=== PATIENT | male | born 1970 | race Caucasian/White ===

== ENCOUNTER → 2016-10-03 | Outpatient (CLI) | payer BC ==
[2016-10-03 11:56] LABS: CH 30.9; CHCM 34.1; HCT 49.9 % (39.0-53.0); HDW 2.65; HGB 16.7 gm/dL (13.0-17.5); MCH 30.4 pg (25.0-35.0); MCHC 33.4 g/dL (31.0-37.0); MCV 91.2 fL (80.0-100.0); Mean Platelet Volume 7.1; RBC 5.47 m/uL (4.30-5.90); RDW 13.2 % (11.5-15.5)
[2016-10-03 12:39] LABS: Potassium 4.9 mmol/L (3.5-5.1)
== END | disposition home or self-care (01) ==
LOC: LABPAT 11:27
PROVIDERS: ATTEND Surgery
DX: Z01.812 Encounter for preprocedural laboratory examination (principal)
CPT/HCPCS: 80051; 85027

== ENCOUNTER 2016-10-09 10:17 | Day surgery (SDC) | payer BC ==
[2016-10-02 16:01] VITALS: BMI 29.1
[~2016-10-09 10:17] MED LIST: LACTATED RINGERS 1,000 ML IV SCH
[2016-10-09] MEDS ORDERED: LIDOCAINE 1% 20 ML VIAL (10MG/ML) FOR IV START INTRADERMA ONE (11:03)
[2016-10-09 11:12] VITALS: RESP 18; TEMP 98.1
[2016-10-09] MEDS ORDERED: PROPOFOL 10 MG/ML 20 ML VIAL IV ONE (13:28)
--- NOTE | 2016-10-09 13:33 | P.GSHP ---
History of Present Illness H&P Date: 10/09/16 Chief Complaint: Intrabdominal abscess 46 yr old male presents regarding intrabdominal abscess S/P CT guided drainage . Cultures grew Kliebsiella. He reports no fever, no abdominal pain, regular BM. Has finished po antibiotics. Last CBC within normal limits. Repeat CT scan showed decrease in size of the abscess - Review of Systems Comment: Constitutional: No fever, chills or rigors. No weight loss or loss of appetite. HEENT: No difficulty with hearing, vision and swallowing. Lymphatic: No axillary , inguinal and cervical swellings. Endocrine: No thyroid disorders. Denies history of diabetes. Respiratory: No chest pain, shortness of breath, and cough. No hemoptysis. Cardiovascular: No palpitations, irregular HR Gastrointestinal: Denies heartburn. No change in bowel habits. No nausea or vomiting. Genitourinary: No increase in urinary frequency or urgency. No hematuria. Musculoskeletal: No back pain, joint stiffness or pain. Neurologic: No history of seizure disorder and headaches. Psychiatric: Denies depression or anxiety . No suicidal ideation. Hematologic: Denies any abnormal mucosal bleeding or easy bruising Past Medical History Additional Past Medical History / Comment(s): abscess lower rt quad of abd-tx with antibiotics for last 5-6 mos. History of Any Multi-Drug Resistant Organisms: None Reported Past Surgical History: No Surgical Hx Reported Past Anesthesia/Blood Transfusion Reactions: Motion Sickness Additional Past Anesthesia/Blood Transfusion Reaction / Comment(s): Never has had general anesthesia or blood transfusion. Past Psychological History: No Psychological Hx Reported Smoking Status: Never smoker Past Alcohol Use History: None Reported Past Drug Use History: None Reported - Past Family History Father Family Medical History: No Reported History Mother Family Medical History: No Reported History Medications and Allergies Home Medications Medication Instructions Recorded Confirmed Type No Known Home Medications [No 10/02/16 10/09/16 History Known Home Medications] Allergies Allergy/AdvReac Type Severity Reaction Status Date / Time No Known Allergies Allergy Verified 10/09/16 10:48 Surgical - Exam Vital Signs Temp Pulse Resp BP 98.1 F 68 18 148/80 10/09/16 11:09 10/09/16 11:09 10/09/16 11:09 10/09/16 11:09 Constitutional General Appearance: healthy-appearing, well-nourished, well-developed Level of Distress: NAD Ambulation: ambulating normally Psychiatric Insight: good judgement Mental Status: active and alert, normal mood, normal affect Orientation: to time, to place, to person Memory: recent memory normal, remote memory normal Head Head: normocephalic, atraumatic Eyes Lids and Conjunctivae: non-injected, no discharge, no pallor EOM: EOMI Sclerae: non-icteric ENMT Oropharynx: moist mucous membranes Musculoskeletal: Motor Strength and Tone: normal, normal tone Joints, Bones, and Muscles: normal movement of all extremities Extremities: no cyanosis, no edema Neurologic Gait and Station: normal gait, normal station Cranial Nerves: grossly intact Skin Inspection and palpation: no rash, no lesions Assessment and Plan (1) Intra-abdominal abscess Status: Acute Plan: 1. Review CT scan abd/pelvis 2. Colonoscopy 3. Unclear about the source of intrabdominal abscess. Terminal ileitis/chron's disease with abscess vs. perforated appendicitis with abscess 4. Ileocecetomy/right hemicolectomy in am 10/10/16
[2016-10-09 14:36] VITALS: BP 125/80; PULSE 69
--- NOTE | 2016-10-09 15:18 | P.OP ---
Date of Procedure: 10/09/16 Preoperative Diagnosis: Intra-abdominal abscess Postoperative Diagnosis: Same Procedure(s) Performed: Colonoscopy with biopsy Implants: NA Anesthesia: MAC Surgeon: Daisha Gómez Pathology: other Condition: stable Disposition: PACU Indications for Procedure: 46 years old male presented with intra-abdominal abscess and terminal ileum thickening. Status post drainage and oral antibiotics. Repeat computed tomography scan shows decreasing size of the abscess. However patient has abdominal discomfort. No prior history of colonoscopy. No family history of Crohn's disease or ulcerative colitis. Informed consent obtained and patient elected to undergo colonoscopy with possible biopsy. The risks, benefits and potential complications were explained and patient elected to undergo the procedure Operative Findings: Multiple less than 5 mm polyp in the rectum and sigmoid colon which appeared hyperplastic in nature. No evidence of colitis. Description of Procedure: The patient was brought to the endoscopy suite and placed in lateral decubitus position. IV sedation was given as per anesthesia team. Patient was on continuous vitals and pulse oximetry monitoring throughout the procedure. A timeout was performed to verify correct patient and correct procedure. Perianal examination did not show any external hemorrhoids. Digital rectal examination was performed. No masses or gross blood. A well-lubricated Olympus colonoscope was passed per rectally and was gradually advanced beyond the sigmoid colon, splenic flexure, transverse colon, hepatic flexure and cecum. The ileocecal valve was visualized . The colonoscope was gradually withdrawn inspecting all the mucosal surfaces. Bowel prep was good. No masses, AV malformations noted. Sigmoid diverticulosis noted without any evidence of acute diverticulitis. Multiple hyperplastic polyps noted within the rectum and distal sigmoid colon which were biopsied using cold biopsy forceps and they were less than 5 mm in size The scope was gradually withdrawn and retroflexed in the rectum . Grade 1 internal hemorrhoids seen. Total withdrawal time was greater than 6 minutes . Patient tolerated the procedure well and was taken to post anesthesia care unit in stable condition. Recommend repeat colonoscopy in 5 years . Pending pathology reports.
== END 2016-10-09 14:45 | disposition home or self-care (01) ==
LOC: ORWHC2ENDO 10:17
PROVIDERS: ATTEND Surgery
DX: K63.5 Polyp of colon (principal); K62.1 Rectal polyp; K64.0 First degree hemorrhoids; K65.1 Peritoneal abscess
CPT/HCPCS: 88305; 45380; J2704; 43239; 99153

== ENCOUNTER 2016-10-10 08:43 | Inpatient (IN) | payer BC ==
[2016-10-02 15:03] VITALS: BMI 29.1
[~2016-10-10 08:43] MED LIST changes: +DEXAMETHASONE SOD PHOSPHATE 10 MG/ML 1 ML VIAL IV ONE; +HYDROmorphone 1 MG/ML 1 ML SYRINGE IVP PRN; +MIDAZOLAM 2 MG/2 ML VIAL IV PRN; +ONDANSETRON 4 MG/2 ML VIAL IVP ONE; +SCOPOLAMINE 1.5MG/72HR PATCH TRANSDERM ONE; +ceFAZolin 2 GM in SODIUM CHLORIDE 0.9% 100 ML IVPB ONE; +metroNIDAZOLE-NS PMX 500 MG in SALINE 1 100ML.BAG IVPB ONE
[2016-10-10] MEDS ORDERED: HEPARIN SODIUM,PORCINE 5,000 UNIT/ML 1 ML VIAL SQ ONE (09:00)
[2016-10-10] MEDS ORDERED: MELOXICAM 7.5 MG TAB PO ONE (09:00)
[2016-10-10] MEDS ORDERED: Antibiotics per Pharmacy 1 EACH MISC MISCELLANE PRN (09:00)
[2016-10-10] MEDS ORDERED: ALVIMOPAN 12 MG CAPSULE PO ONE (09:00)
[2016-10-10] MEDS ORDERED: LIDOCAINE 1% 20 ML VIAL (10MG/ML) FOR IV START INTRADERMA ONE (09:42)
[2016-10-10] MEDS ORDERED: fentaNYL (PF) 50 MCG/ML 2 ML AMP IV ONE ×2 (09:53→10:43)
[2016-10-10] MEDS ORDERED: diphenhydrAMINE 50 MG/ML 1 ML VIAL IVP PRN (10:05)
[2016-10-10] MEDS ORDERED: NALBUPHINE 10 MG/ML AMPUL IV PRN (10:05)
[2016-10-10] MEDS ORDERED: ONDANSETRON 4 MG/2 ML VIAL IVP PRN ×2 (10:05→10:59)
[2016-10-10] MEDS ORDERED: NALOXONE 0.4 MG/ML 1 ML VIAL IV PRN (10:05)
[2016-10-10] MEDS ORDERED: METOCLOPRAMIDE 5 MG/ML 2 ML VIAL IVP PRN (10:59)
[2016-10-10] MEDS ORDERED: BUPIVACAIN-EPI 0.25%-1:200,000 30 ML VIAL SQ ONE (11:22)
[2016-10-10] MEDS ORDERED: LACTATED RINGERS 1,000 ML IV ONE ×2 (11:23→12:35)
[2016-10-10] MEDS: BUPIVACAINE (PF) 0.5% 50 ML, HYDROmorphone 5 MG in SODIUM CHLORIDE 0.9% 198 ML EPIDURAL PRN (14:07)
[2016-10-10] MEDS: D5-0.45% NACL WITH KCL 20MEQ/L 1,000 ML IV SCH ×2 (16:00→23:45)
[2016-10-10] MEDS: HEPARIN SODIUM,PORCINE 5,000 UNIT/ML 1 ML VIAL SQ SCH ×2 (16:01→23:50)
[2016-10-10 17:12] LABS: Glucose,Whole Blood 146 mg/dL (75-99)
[2016-10-10] MEDS: FAMOTIDINE 20 MG/2 ML VIAL IV SCH (21:22)
[2016-10-10] MEDS: ALVIMOPAN 12 MG CAPSULE PO SCH (21:22)
[2016-10-11] MEDS: D5-0.45% NACL WITH KCL 20MEQ/L 1,000 ML IV SCH ×2 (04:09→07:36)
[2016-10-11 06:54] LABS: Basophils % (A) 0 %; CH 30.9; CHCM 33.7; Eosinophils % (A) 0 %; HCT 43.8 % (39.0-53.0); HDW 2.66; HGB 14.6 gm/dL (13.0-17.5); Luc # (Auto) 0.13; Luc % (Auto) 1; Lymphocytes # (A) 0.8 k/uL (1.0-4.8); Lymphocytes % (A) 8 %; MCH 30.6 pg (25.0-35.0); MCHC 33.2 g/dL (31.0-37.0); MCV 92.1 fL (80.0-100.0); Mean Platelet Volume 7.3; Monocytes # (A) 0.6 k/uL (0-1.0); Monocytes % (A) 6 %; Neutrophils # (A) 8.6 k/uL (1.3-7.7); Neutrophils % (A) 85 %; RBC 4.76 m/uL (4.30-5.90); RDW 13.1 % (11.5-15.5); WBC 10.1 k/uL (3.8-10.6); WBC (Perox) 11.37
[2016-10-11 07:37] LABS: ALT 45 U/L (21-72); AST 22 U/L (17-59); Alkaline Phosphatase 64 U/L (38-126); Anion Gap 9 mmol/L; Blood Urea Nitrogen 7 mg/dL (9-20); Calcium 9.1 mg/dL (8.4-10.2); Carbon Dioxide 26 mmol/L (22-30); Chloride 104 mmol/L (98-107); Glucose 129 mg/dL (74-99); Non-African American GFR(MDRD) >60 (>60 ml/min/1.73 sqM); Sodium 139 mmol/L (137-145); Total Bilirubin 0.6 mg/dL (0.2-1.3); Total Protein 6.3 g/dL (6.3-8.2)
[2016-10-11] MEDS: FAMOTIDINE 20 MG/2 ML VIAL IV SCH ×2 (08:39→21:22)
[2016-10-11] MEDS: HEPARIN SODIUM,PORCINE 5,000 UNIT/ML 1 ML VIAL SQ SCH ×3 (08:39→23:34)
[2016-10-11] MEDS: ALVIMOPAN 12 MG CAPSULE PO SCH ×2 (08:39→21:22)
--- NOTE | 2016-10-11 09:09 | P.PN ---
Progress Note - Text This is a 46-year-old gentleman postoperative day #1 status post ileocecostomy with a thoracic epidural catheter placement for postoperative pain control. The patient is lying in his bed alert oriented 3 in no apparent distress. The patient has not tried to ambulate yet however he denies any incisional pain at this point. He also denies any weakness in the lower extremities or any paresthesia. The patient will try to ambulate today with assistance.
--- NOTE | 2016-10-11 10:04 | P.PN ---
Subjective Principal diagnosis: Intra-abdominal abscess Status post laparoscopic drainage of intra-abdominal abscess and ileocectomy postop day #1. Patient has epidural. Pain is well controlled. Good urine output. No fever, chills or rigors. No bowel function yet. No acute overnight events Objective - Vital Signs Vital signs: Vital Signs Temp 97.5 F L 10/11/16 07:00 Pulse 84 10/11/16 07:00 Resp 16 10/11/16 07:00 BP 107/69 10/11/16 07:00 Pulse Ox 95 10/11/16 07:00 Intake & Output 10/10/16 10/11/16 10/11/16 18:59 06:59 18:59 Intake Total 3075 1375 Output Total 425 780 Balance 2650 595 Weight 97.5 kg Intake: IV 3075 Intake, IV Titration 1375 Amount D5-0.45% NaCl with KCl 1375 20Meq/l 1,000 ml @ 125 mls/hr IV .Q8H [facility] Rx#: [id number] Output: Urine 325 780 Estimated Blood Loss 100 Other: Voiding Method Indwelling Catheter Indwelling Catheter - Exam General: Patient is alert and oriented to time, place and person and cooperative with exam. He is not in acute distress. HEENT: No pallor, no icterud Chest: Bilateral equal breath sounds present. No wheezes, no crackles. Cardiovascular: Regular rate and rhythm. Abdomen: Mild distention. Hypoactive bowel sounds. Dressing intact Neurologic: Cranial nerves II-XII intact. Strength upper and lower extremities 5/5. No focal neurologic deficits. - Labs CBC & Chem 7: 10/11/16 06:23 10/11/16 06:23 Labs: Abnormal Lab Results - Last 24 Hours (Table) 10/10/16 10/11/16 10/11/16 Range/Units 17:11 06:23 06:23 Neutrophils # 8.6 H (1.3-7.7) k/uL Lymphocytes # 0.8 L (1.0-4.8) k/uL BUN 7 L (9-20) mg/dL Glucose 129 H (74-99) mg/dL POC Glucose (mg/dL) 146 H (75-99) mg/dL Assessment and Plan (1) Intra-abdominal abscess Status: Acute Plan: 46 years old male presenting with recurrent intra-abdominal abscess and terminal ileum thickening suggestive of Crohn's disease. 1. Postop day #1 status post drainage of intra-abdominal abscess and ileocectomy 2. Continue epidural for pain control 3. Apple catheter to stay 4. Levaquin and flagyl for intraabdominal abcess. Cultures pending 5. DVT and GI prophylaxis 6. Incentive spirometry
--- NOTE | 2016-10-11 10:21 | P.OP ---
Date of Procedure: 10/10/16 Preoperative Diagnosis: Intra-abdominal abscess Suspected Crohn's disease Postoperative Diagnosis: Same Procedure(s) Performed: Laparoscopic ileocecectomy Laparoscopic drainage of intra-abdominal abscess Implants: NA Anesthesia: GETA, local, epidural Surgeon: Daisha Gómez Estimated Blood Loss (ml): 100 Pathology: other Condition: stable Disposition: PACU Indications for Procedure: 46 years old male presented in March 2016 with abdominal pain. Computed tomography scan showed thickening of the terminal ileum and intra-abdominal abscess. He was treated with antibiotics and abscess decreased in size without complete resolution on repeat Ct scan. Informed consent obtained and patient elected to undergo diagnostic laparoscopy, ileocecectomy and drainage of intra- abdominal abscess, possible open. Operative Findings: 2 x 3 cm abscess in the right lower quadrantwalled off by omentum , terminal ileum and cecum. The appendix was identified close to the absces cavity. Terminal ileum showed prominent mesenty fat( creeping fat). Description of Procedure: The patient was brought to the operating room and placed in supine position with both arms out. General anesthesia with endotracheal intubation was performed as per anesthesia team. A Apple catheter was inserted under sterile aseptic precautions. Bilateral SCDs were placed and patient was secured to the operating table using a footboard and two secure straps. Chlorhexidine was used to prep the abdomen followed by application of sterile drapes . A timeout was performed to verify correct patient and procedure. Patient was confirmed to receive perioperative IV antibiotics and subcutaneous VTE prophylaxis. A 5 mm skin incision was made along the left anterior axillary line and Veress needle was inserted. Pneumoperitoneum was established to a pressure of 15 mmHg without any difficulty. A 5 mm 30 laparoscope was loaded with 5 mm Optiview trocar and the peritoneal cavity was entered under direct vision using the Optiview technique. Additional 5 mm trocar was placed in left lower quadrant, another 5 mm trocar was placed midway between pubic symphysis and umbilicus and a 10 mm trocar was placed above the umbilicus. An additional 5 mm trocar was placed inferior to xiphisternum. Patient was placed in reverse Trendelenburg with right side up. The cecum was densely adhered to the lateral abdominal wall. Dissection was carried out from lateral to medial orientation. The white line of Toldt was dissected using laparoscopic LigaSure device. Blunt sweeping movements were carried out using fenestrated graspers to reflect the cecum and ascending colon medially. The peritoneal attachments from terminal ileum and cecum to the lateral abdominal wall were taken down using LigaSure. Dissection was carried out close to the cecum and away from the right ureter. The omentum was fused with mesentry of the terminal ileum . Careful dissection was carried out to separate the omentum from small bowel mesentery. Lysis of adhesions were done for 30 minutes to carefully separate the omental attachments from the ileocolonic mesentery. It was difficult to identify the ileocolic pedicle. The mesentery was very thick and no pulsating pedicle could be identified. There was a 2 x 1 cm abscess cavity filled with pus which was suctioned. Attention was then focused to mobilize the hepatic flexure. Dissection was then carried out from transverse mesocolon towards the hepatic flexure. Blunt sweeping movements were used and the duodenum was left in the retroperitoneum. Care was taken not to mobilize the right kidney medially. The entire right colon was mobilized beyond the hepatic flexure. Loose fibrofatty tissue including small blood vessels were taken down using LigaSure device. The cecum was free enough to reach the midline. The appendix was grasped with a laparoscopic Clio instrument. An 8 cm skin incision was made in the upper midline incorporating the two trocar sites. This was deepened through skin and subcutaneous tissue till the fascia was identified and peritoneal cavity was safely entered. An Cesar wound protector device was inserted. The appendix along with the cecum was exteriorized. A window was made in mesentery of the small bowel approximately 5 cm from ileocecal valve. The small bowel was divided using Ethicon 60 blue staple load. The ileocolic pedicle divided between two Najma clamps and doubly suture ligated. The colon was divided 10 cm distal to the cecum after creating a window in the mesocolon. Covidien 60 purple staple load was fired to transect the large bowel. Attention was then focused to create a [id number] functional end anastomosis between small bowel and transverse colon. Covidien 60 jacobs staple load x2 was fired to create a vhph-yq-dimd anastomosis. The final enterotomy was closed using 60 blue staple load x2. Three seromuscular sutures of 3-0 silk were placed between the small and large bowel anastomosis. There was no twist or torsion of the large or small bowel. The anastomosis was interiorized and GelPort was placed. Pneumoperitoneum was reestablished. The anastomosis was checked intracorporeally. No evidence of torsion or twist. The GelPort and Cesar device was removed and fascia closed with interrupted figure of 8 sutures of 0 Vicryl. The mervat were applied to approximate the skin. The sponge, instrument, needle count were correct x2 Patient tolerated the procedure well and was taken to post anesthetic care unit in stable condition.
--- NOTE | 2016-10-11 10:26 | P.CONS ---
History of Present Illness - Reason for Consult Consult date: 10/11/16 Medical management - History of Present Illness This is a 46-year-old male. He is a patient of Dr. Martínez with a past medical history of abdominal abscess since March 2016. In March 2016 he did undergo CAT scan guided drainage of the abscess at [facility]. He was on antibiotics for 4 weeks which ended at the end of May. He saw Dr. Ching Masters and was placed on antibiotics for another 2 months which would've been for July and July. Repeat CAT scan in August showed that he still had an abscess present. He was then sent to Dr. Gómez and saw her last Thursday and subsequent Sharmin up for surgery yesterday. He is status post laparoscopic drainage of intra-abdominal abscess and ileocetomy. He states his pain is controlled with the epidural. He has a Apple catheter in place. He has not passed gas. He denies any shortness of breath or cough, nausea, vomiting. He is using incentive spirometry. Patient states that he has been exercising and keeping a strict diet for the past 2 months in preparation for the surgery. Plan today is to increase activity Review of Systems All systems: negative Constitutional: Denies chills, Denies fever Eyes: denies blurred vision, denies pain Ears, nose, mouth and throat: Denies headache, Denies sore throat Cardiovascular: Denies chest pain, Denies shortness of breath Respiratory: Denies cough Gastrointestinal: Reports abdominal pain, Denies diarrhea, Denies nausea, Denies vomiting Musculoskeletal: Denies myalgias Integumentary: Denies pruritus, Denies rash Neurological: Denies numbness, Denies weakness Psychiatric: Denies anxiety, Denies depression Endocrine: Denies fatigue, Denies weight change Past Medical History Additional Past Medical History / Comment(s): abscess lower rt quad of abd-tx with antibiotics for last 5-6 mos. History of Any Multi-Drug Resistant Organisms: None Reported Past Surgical History: No Surgical Hx Reported, Appendectomy Additional Past Surgical History / Comment(s): Laparoscopic drainage of intra- abdominal abscess and ileocecectomy and appendectomy Past Anesthesia/Blood Transfusion Reactions: Motion Sickness Additional Past Anesthesia/Blood Transfusion Reaction / Comm: Never has had general anesthesia or blood transfusion. Past Psychological History: No Psychological Hx Reported Smoking Status: Never smoker Past Alcohol Use History: None Reported Additional Past Alcohol Use History / Comment(s): Patient was a smoker all along time ago and quit in 1995. He denies any medical marijuana, marijuana, street drug or alcohol use. He does not have oxygen, nebulizer or CPAP at home. 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 He is a single parent and has a son of 8 years old. Past Drug Use History: None Reported - Past Family History Father Family Medical History: No Reported History Additional Family Medical History / Comment(s): Father is alive at age 75 with no major medical problems. Mother Family Medical History: No Reported History Additional Family Medical History / Comment(s): Mother is alive at age 72 with no major medical problems. Brother(s) Additional Family Medical History / Comment(s): Patient has one brother age 50 and 1 sister age 45 that are healthy with no major medical problems. Medications and Allergies Home Medications Medication Instructions Recorded Confirmed Type No Known Home Medications [No 10/02/16 10/10/16 History Known Home Medications] Allergies Allergy/AdvReac Type Severity Reaction Status Date / Time No Known Allergies Allergy Verified 10/09/16 10:48 Physical Exam Vitals: Vital Signs Temp Pulse Pulse Pulse Resp BP BP 10/11/16 07:00 97.5 F L 84 16 107/69 10/10/16 22:19 97.7 F 100 16 117/66 10/10/16 16:30 102 H 16 120/70 10/10/16 16:00 14 10/10/16 15:45 87 16 114/62 10/10/16 15:30 98 F 73 16 125/64 10/10/16 14:45 72 16 125/73 10/10/16 14:31 72 16 129/70 10/10/16 14:15 82 16 130/71 10/10/16 14:01 96.8 F L 89 16 133/73 10/10/16 09:20 97.6 F 87 16 132/94 Pulse Ox 10/11/16 07:00 95 10/10/16 22:19 95 10/10/16 16:30 96 10/10/16 16:00 10/10/16 15:45 96 10/10/16 15:30 96 10/10/16 14:45 97 10/10/16 14:31 100 10/10/16 14:15 100 10/10/16 14:01 100 10/10/16 09:20 98 Intake and Output 10/10/16 10/11/16 10/11/16 22:59 06:59 14:59 Intake Total 375 1000 Output Total 780 Balance 375 220 Intake: Intake, IV Titration 375 1000 Amount D5-0.45% NaCl with KCl 375 1000 20Meq/l 1,000 ml @ 125 mls/hr IV .Q8H [facility] Rx#: [id number] Output: Urine 780 Other: Voiding Method Indwelling Catheter Indwelling Catheter Weight 97.5 kg Gen: This is a 46-year-old male. He is in bed and appears to be in no acute distress. HEENT: Head is atraumatic, normocephalic. Pupils equal, round. Sclerae is anicteric. NECK: Supple. No JVD. No lymphadenopathy. No thyromegaly. LUNGS: Clear to auscultation. No wheezes or rhonchi. No intercostal retractions. HEART: Regular rate and rhythm. No murmur. ABDOMEN: Mild abdominal distention Bowel sounds are hypoactive. No masses. Mild tenderness. Dressing in place. EXTREMITIES: No pedal edema. No calf tenderness. Dorsalis pedis +2 bilaterally. NEUROLOGICAL: Patient is awake, alert and oriented x3. Cranial nerves 2 through 12 are grossly intact. Results CBC & Chem 7: 10/11/16 06:23 10/11/16 06:23 Labs: Abnormal Lab Results - Last 24 Hours (Table) 10/10/16 10/11/16 10/11/16 Range/Units 17:11 06:23 06:23 Neutrophils # 8.6 H (1.3-7.7) k/uL Lymphocytes # 0.8 L (1.0-4.8) k/uL BUN 7 L (9-20) mg/dL Glucose 129 H (74-99) mg/dL POC Glucose (mg/dL) 146 H (75-99) mg/dL Assessment and Plan Plan: 1. Intra-abdominal abscess rule out Crohn's disease status post laparoscopic drainage of intra-abdominal abscess and ileocectomy. Patient is currently on epidural for pain control. Continue Zofran as needed for nausea and vomiting. Continue heparin for DVT prophylaxis and Pepcid for gastrointestinal prophylaxis. Incentive spirometry to reduce incidence of atelectasis and hospital-acquired pneumonia. Continue Levaquin and Flagyl. Apple catheter is in place. 2. Pulmonary prophylaxis. Continue incentive spirometry and early ambulation. 3. DVT prophylaxis. Continue heparin 5000 units subcu every 8 hours. 4. Gastrointestinal prophylaxis. Continue Pepcid 20 mg IV twice daily. Discharge plan: Return home Impression and plan of care have been directed as dictated by the signing physician. Jonna Plasencia nurse practitioner acting as scribe for signing physician. Time with Patient: Greater than 30
[2016-10-11] MEDS: DEXTROSE 5%-0.45% NACL 1,000 ML IV SCH ×2 (11:06→22:49)
[2016-10-11] MEDS: LEVOFLOXACIN 750MG-D5W PMX 750 MG in DEXTROSE/WATER 1 150ML.BAG IVPB SCH (12:01)
[2016-10-11] MEDS: BUPIVACAINE (PF) 0.5% 50 ML, HYDROmorphone 5 MG in SODIUM CHLORIDE 0.9% 198 ML EPIDURAL PRN (13:06)
[2016-10-11] MEDS: metroNIDAZOLE-NS PMX 500 MG in SALINE 1 100ML.BAG IVPB SCH ×2 (16:56→23:34)
[2016-10-12 07:32] LABS: Basophils % (A) 0 %; CH 30.9; CHCM 33.5; Eosinophils # (A) 0.1 k/uL (0-0.7); Eosinophils % (A) 1 %; HCT 45.9 % (39.0-53.0); HDW 2.69; HGB 14.9 gm/dL (13.0-17.5); Luc # (Auto) 0.12; Luc % (Auto) 1; Lymphocytes # (A) 2.2 k/uL (1.0-4.8); Lymphocytes % (A) 24 %; MCHC 32.4 g/dL (31.0-37.0); MCV 92.8 fL (80.0-100.0); Mean Platelet Volume 7.2; Monocytes # (A) 0.6 k/uL (0-1.0); Monocytes % (A) 6 %; Neutrophils # (A) 6.5 k/uL (1.3-7.7); Neutrophils % (A) 68 %; RBC 4.94 m/uL (4.30-5.90); RDW 13.3 % (11.5-15.5); WBC 9.6 k/uL (3.8-10.6); WBC (Perox) 9.53
[2016-10-12 07:54] LABS: ALT 46 U/L (21-72); AST 20 U/L (17-59); Alkaline Phosphatase 71 U/L (38-126); Anion Gap 9 mmol/L; Blood Urea Nitrogen 8 mg/dL (9-20); Calcium 9.2 mg/dL (8.4-10.2); Carbon Dioxide 30 mmol/L (22-30); Chloride 102 mmol/L (98-107); Glucose 107 mg/dL (74-99); Non-African American GFR(MDRD) >60 (>60 ml/min/1.73 sqM); Potassium 4.1 mmol/L (3.5-5.1); Sodium 141 mmol/L (137-145); Total Bilirubin 0.8 mg/dL (0.2-1.3); Total Protein 6.7 g/dL (6.3-8.2)
[2016-10-12] MEDS: HEPARIN SODIUM,PORCINE 5,000 UNIT/ML 1 ML VIAL SQ SCH ×3 (08:22→23:17)
[2016-10-12] MEDS: FAMOTIDINE 20 MG/2 ML VIAL IV SCH ×2 (08:22→20:33)
[2016-10-12] MEDS: metroNIDAZOLE-NS PMX 500 MG in SALINE 1 100ML.BAG IVPB SCH ×3 (08:22→23:16)
[2016-10-12] MEDS: ALVIMOPAN 12 MG CAPSULE PO SCH ×2 (08:22→20:33)
[2016-10-12] MEDS: DEXTROSE 5%-0.45% NACL 1,000 ML IV SCH (10:29)
--- NOTE | 2016-10-12 11:55 | P.PN ---
Progress Note - Text Patient is postoperative day# 2 status post laparoscopic drainage of intra- abdominal collection, epidural catheter placed for postoperative analgesia, patient currently very comfortable, pain is well controlled, patient had no side effect of the medication, epidural site okay, patient has no motor deficit, Assessment and plan= acute postoperative pain, pain is under control,and will discontinue the epidural catheter today.
[2016-10-12] MEDS: LEVOFLOXACIN 750MG-D5W PMX 750 MG in DEXTROSE/WATER 1 150ML.BAG IVPB SCH (12:11)
--- NOTE | 2016-10-12 12:29 | P.PN ---
Subjective This is a 46-year-old male. He is a patient of Dr. Martínez with a past medical history of abdominal abscess since March 2016. In March 2016 he did undergo CAT scan guided drainage of the abscess at [facility]. He was on antibiotics for 4 weeks which ended at the end of May. He saw Dr. Ching Masters and was placed on antibiotics for another 2 months which would've been for July and July. Repeat CAT scan in August showed that he still had an abscess present. He was then sent to Dr. Gómez and saw her last Thursday and subsequent Sharmin up for surgery yesterday. He is status post laparoscopic drainage of intra-abdominal abscess and ileocetomy. He states his pain is controlled with the epidural. He has a Apple catheter in place. He has not passed gas. He denies any shortness of breath or cough, nausea, vomiting. He is using incentive spirometry. Patient states that he has been exercising and keeping a strict diet for the past 2 months in preparation for the surgery. Plan today is to increase activity 10/12: Patient has epidural and Apple catheter in place with plans to remove these tomorrow. Patient states he has taken 3 walk since his surgery done to the nurse's desk and back. He is passing gas but has not had a bowel movement. He is currently on a clear liquid diet. Incentive spirometry is almost 2000. Objective - Vital Signs Vital signs: Vital Signs Temp 98.0 F 10/12/16 07:00 Pulse 89 10/12/16 07:00 Resp 16 10/12/16 07:00 BP 112/70 10/12/16 07:00 Pulse Ox 94 L 10/12/16 07:00 Intake & Output 10/11/16 10/12/16 10/12/16 18:59 06:59 18:59 Intake Total 1100 Output Total 2925 680 Balance -2925 420 Intake: Intake, IV Titration 1100 Amount Dextrose 5%-0.45% NaCl 1, 1000 000 ml @ 100 mls/hr IV . Q10H SERGIO Rx#:[id number] metroNIDAZOLE-NS PMX 500 100 mg In Saline 1 100ml.bag @ 100 mls/hr IVPB Q8HR SERGIO Rx#:[id number] Output: Urine 2925 680 Uretheral (Apple) 2925 Other: Voiding Method Indwelling Catheter Indwelling Catheter Indwelling Catheter - Exam Gen: This is a 46-year-old male. He is in bed and appears to be in no acute distress. HEENT: Head is atraumatic, normocephalic. Pupils equal, round. Sclerae is anicteric. NECK: Supple. No JVD. No lymphadenopathy. No thyromegaly. LUNGS: Clear to auscultation. No wheezes or rhonchi. No intercostal retractions. HEART: Regular rate and rhythm. No murmur. ABDOMEN: Mild abdominal distention Bowel sounds are hypoactive. No masses. Minimal tenderness. Dressing in place. EXTREMITIES: No pedal edema. No calf tenderness. Dorsalis pedis +2 bilaterally. NEUROLOGICAL: Patient is awake, alert and oriented x3. Cranial nerves 2 through 12 are grossly intact. - Labs CBC & Chem 7: 10/12/16 07:06 10/12/16 07:06 Labs: Abnormal Lab Results - Last 24 Hours (Table) 10/12/16 Range/Units 07:06 BUN 8 L (9-20) mg/dL Glucose 107 H (74-99) mg/dL Assessment and Plan Plan: 1. Intra-abdominal abscess rule out Crohn's disease status post laparoscopic drainage of intra-abdominal abscess and ileocectomy. Patient is currently on epidural for pain control. Continue Zofran as needed for nausea and vomiting. Continue heparin for DVT prophylaxis and Pepcid for gastrointestinal prophylaxis. Incentive spirometry to reduce incidence of atelectasis and hospital-acquired pneumonia. Continue Levaquin and Flagyl. Apple catheter is in place. Clear liquid diet 2. Pulmonary prophylaxis. Continue incentive spirometry and early ambulation. 3. DVT prophylaxis. Continue heparin 5000 units subcu every 8 hours. 4. Gastrointestinal prophylaxis. Continue Pepcid 20 mg IV twice daily. Discharge plan: Return home Impression and plan of care have been directed as dictated by the signing physician. Jonna Plasencia nurse practitioner acting as scribe for signing physician. Time with Patient: Greater than 30
--- NOTE | 2016-10-12 16:25 | P.PN ---
Subjective Principal diagnosis: Intra-abdominal abscess Status post laparoscopic drainage of intra-abdominal abscess and ileocectomy postop day #2. Patient has epidural. Pain is well controlled. Good urine output. No fever, chills or rigors. Passing flatus. No acute overnight events Objective - Vital Signs Vital signs: Vital Signs Temp 98.0 F 10/12/16 15:00 Pulse 89 10/12/16 15:00 Resp 16 10/12/16 15:00 BP 110/70 10/12/16 15:00 Pulse Ox 95 10/12/16 15:00 Intake & Output 10/11/16 10/12/16 10/12/16 18:59 06:59 18:59 Intake Total 1100 Output Total 2925 680 1700 Balance -2925 420 -1700 Intake: Intake, IV Titration 1100 Amount Dextrose 5%-0.45% NaCl 1, 1000 000 ml @ 100 mls/hr IV . Q10H SERGIO Rx#:[id number] metroNIDAZOLE-NS PMX 500 100 mg In Saline 1 100ml.bag @ 100 mls/hr IVPB Q8HR SERGIO Rx#:[id number] Output: Urine 2925 680 1700 Uretheral (Apple) 2925 1700 Other: Voiding Method Indwelling Catheter Indwelling Catheter Indwelling Catheter - Exam General: Patient is alert and oriented to time, place and person and cooperative with exam. He is not in acute distress. HEENT: No pallor, no icterud Chest: Bilateral equal breath sounds present. No wheezes, no crackles. Cardiovascular: Regular rate and rhythm. Abdomen: Mild distention. Hypoactive bowel sounds. Dressing intact Neurologic: Cranial nerves II-XII intact. Strength upper and lower extremities 5/5. No focal neurologic deficits. - Labs CBC & Chem 7: 10/12/16 07:06 10/12/16 07:06 Labs: Abnormal Lab Results - Last 24 Hours (Table) 10/12/16 Range/Units 07:06 BUN 8 L (9-20) mg/dL Glucose 107 H (74-99) mg/dL Assessment and Plan (1) Intra-abdominal abscess Status: Acute Plan: 46 years old male presenting with recurrent intra-abdominal abscess and terminal ileum thickening suggestive of Crohn's disease. 1. Postop day #2 status post drainage of intra-abdominal abscess and ileocectomy 2. Discontinue epidural for pain control 3. Apple catheter to discontinue 4. Levaquin and flagyl for intraabdominal abcess. Cultures pending 5. DVT and GI prophylaxis 6. Incentive spirometry 7. Clear liquids
[2016-10-12] MEDS: DOCUSATE 100 MG CAP PO SCH (20:33)
[2016-10-12] MEDS: HYDROcodone/APAP 5-325MG 1 EACH TAB PO PRN (22:05)
[2016-10-13] MEDS: DOCUSATE 100 MG CAP PO SCH (07:26)
[2016-10-13] MEDS: ALVIMOPAN 12 MG CAPSULE PO SCH (07:26)
[2016-10-13] MEDS: metroNIDAZOLE-NS PMX 500 MG in SALINE 1 100ML.BAG IVPB SCH (07:27)
[2016-10-13] MEDS: HEPARIN SODIUM,PORCINE 5,000 UNIT/ML 1 ML VIAL SQ SCH (07:27)
[2016-10-13] MEDS: FAMOTIDINE 20 MG/2 ML VIAL IV SCH (07:27)
[2016-10-13] MEDS: HYDROcodone/APAP 5-325MG 1 EACH TAB PO PRN (07:39)
[2016-10-13 07:48] VITALS: BP 121/76; PULSE 87; RESP 15; TEMP 98.1
[2016-10-13 08:06] LABS: Basophils % (A) 0 %; CH 31.1; Eosinophils # (A) 0.1 k/uL (0-0.7); Eosinophils % (A) 2 %; HCT 47.1 % (39.0-53.0); HDW 2.68; HGB 15.6 gm/dL (13.0-17.5); Luc # (Auto) 0.16; Luc % (Auto) 2; Lymphocytes # (A) 1.3 k/uL (1.0-4.8); Lymphocytes % (A) 16 %; MCH 30.4 pg (25.0-35.0); MCHC 33.1 g/dL (31.0-37.0); MCV 91.8 fL (80.0-100.0); Mean Platelet Volume 7.3; Monocytes # (A) 0.7 k/uL (0-1.0); Monocytes % (A) 8 %; Neutrophils % (A) 72 %; RBC 5.13 m/uL (4.30-5.90); RDW 13.2 % (11.5-15.5); WBC 8.3 k/uL (3.8-10.6); WBC (Perox) 8.42
[2016-10-13 08:13] LABS: ALT 55 U/L (21-72); AST 21 U/L (17-59); Alkaline Phosphatase 71 U/L (38-126); Anion Gap 8 mmol/L; Blood Urea Nitrogen 8 mg/dL (9-20); Calcium 8.9 mg/dL (8.4-10.2); Carbon Dioxide 27 mmol/L (22-30); Chloride 103 mmol/L (98-107); Glucose 105 mg/dL (74-99); Non-African American GFR(MDRD) >60 (>60 ml/min/1.73 sqM); Potassium 3.9 mmol/L (3.5-5.1); Sodium 138 mmol/L (137-145); Total Bilirubin 1.2 mg/dL (0.2-1.3); Total Protein 5.8 g/dL (6.3-8.2)
[2016-10-13] MEDS: LEVOFLOXACIN 750MG-D5W PMX 750 MG in DEXTROSE/WATER 1 150ML.BAG IVPB SCH (11:14)
--- NOTE | 2016-10-13 13:22 | P.DS ---
Providers Date of admission: 10/10/16 08:43 Expected date of discharge: 10/13/16 Attending physician: Daisha Reyes Consults: 10/10/16 10:59 Consult Physician Routine Consulting Provider: Anali Kebede Consult Reason/Comments: medical management Do you want consulting provider notified?: Yes Primary care physician: Anali Kebede Hospital Course: 46-year-old presented with abdominal pain suspect Crohn's disease. Patient had a CAT scan that showed thickening of the terminal ileum and an intra-abdominal abscess. Patient was seen by surgical service. On October 10 where he underwent a laparoscopic ileocectomy and drainage of intra-abdominal abscess. Postprocedure there was no postop complications. On October 13 was felt to be appropriate to be discharged Impression discharge diagnosis Laparoscopic ileocecectomy October 10 2016 Laparoscopic drainage of intra-abdominal abscess October 10 2016 Present on admission abdominal pain Suspect Crohn's disease Present on admission abdominal pain likely due to abdominal abscess reoccurring Abscess lower right quadrant treated with antibiotics for the past 5-6 months history of abdominal abscess since March 2016 failed outpatient treatment The above dictated assessment and findings were discussed with dr eric Simms and the plan of care have been dictated as directed. Ivis Parsons nurse practitioner acting as a scribe for dr reyes Plan - Discharge Summary New Discharge Prescriptions: Docusate [Colace] 100 mg PO BID #30 capsule HYDROcodone/APAP 5-325MG [[place] 5-325] 1 tab PO Q4HR PRN #30 tab PRN Reason: Pain Levofloxacin [Levaquin] 750 mg PO DAILY 10 Days metroNIDAZOLE [Flagyl] 500 mg PO Q8HR #30 tab Discharge Medication List Docusate [Colace] 100 mg PO BID #30 capsule 10/12/16 [Rx] HYDROcodone/APAP 5-325MG [[place] 5-325] 1 tab PO Q4HR PRN #30 tab 10/12/16 [Rx] Levofloxacin [Levaquin] 750 mg PO DAILY 10 Days 10/12/16 [Rx] metroNIDAZOLE [Flagyl] 500 mg PO Q8HR #30 tab 10/12/16 [Rx] Follow up Appointment(s)/Referral(s): Anali Kebede MD [Primary Care Provider] - 10/20/16 2:00 pm Daisha Reyes MD [STAFF PHYSICIAN] - 10/14/16 2:20 pm Patient Instructions/Handouts: Hydrocodone/Acetaminophen (By mouth), Metronidazole (By mouth), Laxative, Stool Softeners (By mouth), Levofloxacin ( By mouth), Crohn Disease (DC), Surgical Site Infections (DC) Activity/Diet/Wound Care/Special Instructions: OK to shower . No soaking bath. No heavy lifting more than 10 lbs for 6 weeks post surgery. No driving while taking narcotics for pain. May use ice packs for local pain relief Take Motrin 600 mg po TID after meals if pain is not controlled Use incentive spireometry 10 times an hour while awake Discharge Disposition: HOME SELF-CARE
--- NOTE | 2016-10-13 14:52 | P.PN ---
Subjective Principal diagnosis: intra-abdominal abscess, post laparoscopy Drainage and ileocecectomy, possible Crohn disease, hyperglycemia, This is a 46-year-old male. He is a patient of Dr. Martínez with a past medical history of abdominal abscess since March 2016. In March 2016 he did undergo CAT scan guided drainage of the abscess at [facility]. He was on antibiotics for 4 weeks which ended at the end of May. He saw Dr. Ching Masters and was placed on antibiotics for another 2 months which would've been for July and July. Repeat CAT scan in August showed that he still had an abscess present. He was then sent to Dr. Gómez and saw her last Thursday and subsequent Sharmin up for surgery yesterday. He is status post laparoscopic drainage of intra-abdominal abscess and ileocetomy. He states his pain is controlled with the epidural. He has a Apple catheter in place. He has not passed gas. He denies any shortness of breath or cough, nausea, vomiting. He is using incentive spirometry. Patient states that he has been exercising and keeping a strict diet for the past 2 months in preparation for the surgery. Plan today is to increase activity 10/12: Patient has epidural and Apple catheter in place with plans to remove these tomorrow. Patient states he has taken 3 walk since his surgery done to the nurse's desk and back. He is passing gas but has not had a bowel movement. He is currently on a clear liquid diet. Incentive spirometry is almost 2000. 10/13: patient is much better and is eating meals is passing gas had light bowel movement is moving around well and Dr. Gómez 1 SNM home today on oral antibiotics and follow-up as an outpatient. Objective - Vital Signs Vital signs: Vital Signs Temp 98.1 F 10/13/16 07:00 Pulse 87 10/13/16 08:00 Resp 15 10/13/16 08:00 BP 121/76 10/13/16 07:00 Pulse Ox 94 L 10/13/16 07:00 Intake & Output 10/12/16 10/13/16 10/13/16 18:59 06:59 18:59 Intake Total 100 1560 Output Total 3950 885 3759 Balance -1700 -375 360 Weight 97.5 kg Intake: IV 100 metroNIDAZOLE-NS PMX 500 100 mg In Saline 1 100ml.bag @ 100 mls/hr IVPB Q8HR SERGIO Rx#:[id number] Intake, IV Titration 250 Amount Levofloxacin 750Mg-D5w 150 Pmx 750 mg In Dextrose/ Water 1 150ml.bag @ 100 mls/hr IVPB Q24H SERGIO Rx#: [id number] metroNIDAZOLE-NS PMX 500 100 mg In Saline 1 100ml.bag @ 100 mls/hr IVPB Q8HR SERGIO Rx#:[id number] Oral 1310 Output: Urine 1126 264 6980 Uretheral (Apple) 1700 Other: Voiding Method Indwelling Catheter # Voids 0 2 - Constitutional General appearance: Present: cooperative, no acute distress. Absent: average body habitus, disheveled, mild distress, morbidly obese, obese, severe distress , thin - EENT Eyes: Present: anicteric sclerae, normal appearance. Absent: abnormal pupil, disc margins sharp, edentulous, EOMI, PERRLA, fundus normal, photophobia, dentition normal, poor dentition, ptosis, scleral icterus ENT: Present: normal oropharynx. Absent: hard of hearing, hearing grossly normal, NA/AT, other, pharyngeal erythema, thrush, tonsillar exudates, tonsillar swelling Ears: bilateral: normal - Neck Neck: Present: normal ROM. Absent: lymphadenopathy, other, rigidity, stridor, thyromegaly Carotids: bilateral: upstroke normal Thyroid: bilateral: normal size - Respiratory Respiratory: bilateral: CTA, diminished - Cardiovascular Rhythm: regular Heart sounds: normal: S1, S2 Abnormal Heart Sounds: Present: systolic murmur - Gastrointestinal General gastrointestinal: Present: distended, scaphoid, soft. Absent: absent bowel sounds, decreased bowel sounds, hepatomegaly, hyperactive bowel sounds, normal bowel sounds, organomegaly, rigid, splenomegaly, tenderness, umbilical hernia, ventral hernia Localized gastrointestinal: tender: midline (incision from his surgical site looks fine) - Integumentary Integumentary: Absent: calor, cellulitis, cyanotic, decreased turgor, flushed, jaundiced, normal, normal turgor, pale, rash, ulcer - Neurologic Neurologic: Present: CNII-XII intact. Absent: focal deficits - Musculoskeletal Musculoskeletal: Present: gait normal, generalized weakness, strength equal bilaterally. Absent: right sided weakness, left sided weakness - Psychiatric Psychiatric: Present: A&O x's 3, appropriate affect - Labs CBC & Chem 7: 10/13/16 07:13 10/13/16 07:13 Labs: Abnormal Lab Results - Last 24 Hours (Table) 10/13/16 Range/Units 07:13 BUN 8 L (9-20) mg/dL Glucose 105 H (74-99) mg/dL Total Protein 5.8 L (6.3-8.2) g/dL Albumin 3.3 L (3.5-5.0) g/dL Assessment and Plan Plan: 1. Intra-abdominal abscess rule out Crohn's disease status post laparoscopic drainage of intra-abdominal abscess and ileocectomy. Patient is currently on epidural for pain control. Continue Zofran as needed for nausea and vomiting. Continue heparin for DVT prophylaxis and Pepcid for gastrointestinal prophylaxis. Incentive spirometry to reduce incidence of atelectasis and hospital-acquired pneumonia. Continue Levaquin and Flagyl. Apple catheter is in place. Clear liquid diet 2. Pulmonary prophylaxis. Continue incentive spirometry and early ambulation. 3. DVT prophylaxis. Continue heparin 5000 units subcu every 8 hours. 4. Gastrointestinal prophylaxis. Continue Pepcid 20 mg IV twice daily. Discharge plan: Return home today on oral antibiotic and to follow-up with Dr. Gómez and Dr. Kebede's as an outpatient.
== END 2016-10-13 14:25 | disposition home or self-care (01) | DRG 330 ==
LOC: 2ORWHC 08:43 → 5MS5E 14:27
PROVIDERS: ADMIT Surgery; ATTEND Surgery
PROC: 0DNV4ZZ Release Mesentery, Percutaneous Endoscopic Approach (ICD-10-PCS; 2016-10-10)
PROC: 0DTH4ZZ Resection of Cecum, Percutaneous Endoscopic Approach (ICD-10-PCS; principal; 2016-10-10 10:25)
DX: K50.014 Crohn's disease of small intestine with abscess (principal); B96.1 Klebsiella pneumoniae [K. pneumoniae] as the cause of diseases classified elsewhere; K66.0 Peritoneal adhesions (postprocedural) (postinfection); Z87.891 Personal history of nicotine dependence
CPT/HCPCS: 43239; 45380; 80051; 80053; 85025; 85027; 86850; 86900; 86901; 88173; 88305; 88307; 99153

== ENCOUNTER → 2017-05-20 | Outpatient (CLI) | payer BC ==
[2017-05-21 00:56] LABS: Estradiol 33.7 pg/mL
== END ==
LOC: MMGSC 09:55
PROVIDERS: ATTEND Obstetrics & Gynecology
DX: F41.9 Anxiety disorder, unspecified (principal); F32.9 Major depressive disorder, single episode, unspecified; R53.83 Other fatigue; N52.9 Male erectile dysfunction, unspecified; Z12.5 Encounter for screening for malignant neoplasm of prostate
CPT/HCPCS: 80061; 82670; 84402; 82306; 84403; 36415; G0103